=== PATIENT | male | born 1955 | race Caucasian/White ===

== ENCOUNTER → 2016-11-21 | Outpatient (CLI) | payer BC | END | disposition home or self-care (01) | LOC: CDC 15:14 | DX: R94.31 Abnormal electrocardiogram [ECG] [EKG] (principal); M23.51 Chronic instability of knee, right knee; M25.561 Pain in right knee | CPT/HCPCS: 93000 ==

== ENCOUNTER 2017-01-05 23:36 | Emergency (ER) | payer BC ==
[~2017-01-05] VITALS: Ht 180.3 cm; Wt 105.1 kg
[2017-01-06] MEDS ORDERED: METOPROLOL SUC100 MG PO (00:30)
[2017-01-06] MEDS ORDERED: TIAZAC120 MG PO (00:30)
[2017-01-06] MEDS ORDERED: CLONAZEPAM0.5 MG PO (00:31)
[2017-01-06] MEDS ORDERED: LOSARTAN-HCTZ1 EAC2 PO (00:31)
[2017-01-06] MEDS ORDERED: XARELTO20 MG PO (00:32)
[2017-01-06 00:35] LABS: HEMATOCRIT 46.3 % (38.0-50.0); MCH 31.2 PG (29.0-34.0); MCHC 34.1 G/DL (30.0-36.0); MCV 91.3 FL (86-99); MEAN PLAT.VOLUME 9.2 uM^3 (9.0-12.4); PLATELET COUNT 159 K/uL (156-360); RBC DIS.WIDTH-CV 12.3 % (11.8-14.6); RBC DIS.WIDTH-SD 40.7 % (39-53); RED BLOOD COUNT 5.07 M/uL (4.00-5.50); WHITE BLOOD COUNT 9.3 K/uL (4.1-10.2)
[2017-01-06 00:48] LABS: CHLORIDE 105 mEq/L (99-109); POTASSIUM 3.6 mEq/L (3.7-5.4); SODIUM 141 mEq/L (136-147)
[2017-01-06 00:50] LABS: GLUCOSE 125 mg/dL (70-99)
[2017-01-06 00:51] LABS: ANION GAP 8 MEQ/L (2-14)
[2017-01-06 00:52] LABS: TOTAL BILIRUBIN 0.5 mg/dL (0.0-1.0)
[2017-01-06 00:54] LABS: ALKALINE PHOSPHATASE 66 IU/L (3-129); GFR ESTIMATE (CALCULATED) > 59 mL/min/
[2017-01-06 00:55] LABS: UREA NITROGEN (BUN) 18 mg/dL (9-23)
[2017-01-06 00:57] LABS: LIPASE 25 U/L (1.0-51.0)
[2017-01-06 01:41] LABS: ADD MIUA? NO; BILIRUBIN NEGATIVE; BLOOD NEGATIVE; COLOR YELLOW ((YELLOW)); GLUCOSE (STRIP) NEGATIVE; KETONES NEGATIVE; LEUKOCYTES NEGATIVE; NITRITE NEGATIVE; PROTEIN (STRIP) NEGATIVE; SPECIFIC GRAVITY 1.023 (1.000-1.030); UCUL ADDED? NO; UROBILINOGEN 0.2 MG/DL (0.2-1.0)
[2017-01-06] MEDS ORDERED: PERCOCET 5/31 TABLET PO (01:54)
[2017-01-06 02:07] VITALS: BP 117/73
== END 2017-01-06 02:11 | disposition home or self-care (01) ==
LOC: EME 23:36
PROVIDERS: Physician Assistant
DX: S20.211A Contusion of right front wall of thorax, initial encounter (principal); W19.XXXA Unspecified fall, initial encounter; I48.91 Unspecified atrial fibrillation; Z79.01 Long term (current) use of anticoagulants; I10 Essential (primary) hypertension
CPT/HCPCS: 71020; 80053; 81003; 83690; 85027; 99281; 99285